=== PATIENT | male | born 1965 | race Asian ===

== ENCOUNTER 2022-04-11 04:47 | Emergency (ER) | payer BC ==
[~2022-04-11] VITALS: Ht 165.1 cm; Wt 68.0 kg
[2022-04-11 05:14] VITALS: BP_SYST 126
--- NOTE | 2022-04-11 05:14 | NUR ---
Patient ambulatory to bed 7 for evaluation and treatment
[2022-04-11] MEDS ORDERED: LIDOCAINE 1%, 20 ML MDV 0 ML ONE (05:18)
--- NOTE | 2022-04-11 05:18 | NUR ---
ER at bedside examining patient.
[2022-04-11] MEDS ORDERED: DIPHTH,PERTUSS(ACELL),TET VAC 0.5 ML VIAL (Tdap) I.M. ONE (05:30)
[2022-04-11 05:46] VITALS: BP_SYST 124
--- NOTE | 2022-04-11 05:47 | NUR ---
Patient given written and verbal discharge instructions and verbalizes understanding. ER MD discussed with patient the results and treatment provided. Patient in stable condition. ID arm band removed. IV catheter removed intact and dressing applied, no active bleeding. Rx of NONE given. Patient educated on pain management and to follow up with PMD. Pain Scale . Opportunity for questions provided and answered. Medication side effect fact sheet provided.
== END 2022-04-11 05:47 | disposition home or self-care (01) ==
LOC: SED 04:47
DX: S01.81XA Laceration without foreign body of other part of head, initial encounter (principal); Z79.899 Other long term (current) drug therapy; W22.8XXA Striking against or struck by other objects, initial encounter; Y93.89 Activity, other specified; Y92.89 Other specified places as the place of occurrence of the external cause; Y99.8 Other external cause status
CPT/HCPCS: 90715; 99283; J2001